=== PATIENT | female | born 1995 | race African-American/Black ===

== ENCOUNTER 2018-03-19 14:55 | Emergency (ER) | payer OTHER, MEDICAID ==
[2018-03-19] MEDS ORDERED: CYCLOBENZAPRINE HCL 10 MG TABLET PO ONE (16:40)
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
[2018-03-19 19:34] VITALS: BP 133/77
== END 2018-03-19 19:34 | disposition home or self-care (01) ==
LOC: ER 14:55
DX: S16.1XXA Strain of muscle, fascia and tendon at neck level, initial encounter (principal); S09.90XA Unspecified injury of head, initial encounter; S39.012A Strain of muscle, fascia and tendon of lower back, initial encounter; R51 Headache; M54.2 Cervicalgia; M54.9 Dorsalgia, unspecified; V87.7XXA Person injured in collision between other specified motor vehicles (traffic), initial encounter; F17.200 Nicotine dependence, unspecified, uncomplicated
CPT/HCPCS: 70480; 72070; 72110; 72125; 81025; 99284